=== PATIENT | female | born 2000 | race African-American/Black ===

== ENCOUNTER 2018-10-10 22:34 | Emergency (ER) | payer OTHER ==
[2018-10-10 22:39] VITALS: BP 117/88; PULSE 97; TEMP 97.9; BMI 32.8
--- NOTE | 2018-10-10 23:42 | PDOC ---
History of Present Illness - General Chief Complaint: Cold Symptoms Stated Complaint: HARD OF BREATHING Time Seen by Provider: 10/10/18 23:13 History Source: Patient Exam Limitations: No Limitations - History of Present Illness Initial Comments: 10/10/18 23:35 Patient is a 18 year old female with h/o eczema c/o SOB x 3 days. Also complains feels like acid is refluxing and today vomited some blood streaks. States she feels like she is unable to take a deep breath which is worse with laying down and it is uncomfortable from the epigastrium to the stomach. She is not on control pills, no recent travel no leg swelling. Grandmother recently treated for clots in the lung. Patient also reports that she's been bleeding changing 6 pads a day for the past 3-4 months. PMD: Dr. Nico Grijalva PMHX: As above PSOCHX: neg etoh, neg cig, neg drug ALL: NKDA GENERAL/CONSTITUTIONAL: [No fever or chills. No weakness. No weight change.] HEAD, EYES, EARS, NOSE AND THROAT: [No change in vision. No ear pain or discharge. No sore throat.] CARDIOVASCULAR: [No chest pain or shortness of breath.] RESPIRATORY: [No cough, wheezing, or hemoptysis.] GASTROINTESTINAL: [(+) nausea, vomiting, (+) diarrhea or constipation. No rectal bleeding.] GENITOURINARY: [No dysuria, frequency, or change in urination.] MUSCULOSKELETAL: [No joint or muscle swelling or pain. No neck or back pain.] SKIN AND BREASTS: [No rash or easy bruising.] NEUROLOGIC: [No headache, vertigo, loss of consciousness, or loss of sensation.] PSYCHIATRIC: [No depression or anxiety.] ENDOCRINE: [No increased thirst. No abnormal weight change.] HEMATOLOGIC/LYMPHATIC: [No anemia, easy bleeding, or history of blood clots.] ALLERGIC/IMMUNOLOGIC: [No hives or skin allergy. No latex allergy.] GENERAL: [The patient is awake, alert, and fully oriented, in no acute distress. ] HEAD: [Normal with no signs of trauma.] EYES: [Pupils equal, round and reactive to light, extraocular movements intact, sclera anicteric, conjunctiva clear.] ENT: [Ears normal, nares patent, oropharynx clear without exudates. Moist mucous membranes.] NECK: [Normal range of motion, supple without lymphadenopathy, JVD, or masses.] LUNGS: [Breath sounds equal, clear to auscultation bilaterally. No wheezes, and no crackles.] HEART: [Regular rate and rhythm, normal S1 and S2 without murmur, rub.] ABDOMEN: [Soft, tenderness epigastrum, normoactive bowel sounds. No guarding, no rebound. No masses.] EXTREMITIES: [Normal range of motion, no edema. No clubbing or cyanosis. No cords, erythema, or tenderness.] NEUROLOGICAL: [Cranial nerves II through XII grossly intact. Normal speech, normal gait.] PSYCH: [Normal mood, normal affect.] SKIN: [Warm, Dry, normal turgor, no rashes or lesions noted.] Past History - Past Medical History Allergies/Adverse Reactions: Allergies Allergy/AdvReac Type Severity Reaction Status Date / Time No Known Allergies Allergy Verified 01/06/18 23:13 Home Medications: Ambulatory Orders Doxycycline Hyclate 100 mg PO BID #14 tablet 10/11/18 COPD: No - Immunization History Immunization Up to Date: Yes - Suicide/Smoking/Psychosocial Hx Smoking History: Never smoked Have you smoked in the past 12 months: No Information on smoking cessation initiated: No Hx Alcohol Use: No Drug/Substance Use Hx: No Substance Use Type: None *Physical Exam - Vital Signs Last Vital Signs Temp Pulse Resp BP Pulse Ox 97.9 F 97 H 16 117/88 100 10/10/18 22:37 10/10/18 22:37 10/10/18 22:37 10/10/18 22:37 10/10/18 22:37 ED Treatment Course - LABORATORY CBC & Chemistry Diagram: 10/11/18 00:53 10/11/18 00:53 Medical Decision Making - Medical Decision Making 10/10/18 23:35 Patient is a 18 year old female with h/o eczema c/o SOB x 3 days. Also complains feels like acid is refluxing x 3 days and today vomited some blood streaks. States she feels like she is unable to take a deep breath which is worse with laying down and it is uncomfortable from the epigastrium to the stomach. She is not on control pills, no recent travel no leg swelling. Grandmother recently treated for clots in the lung. Patient also reports that she's been bleeding changing 6 pads a day for the past 3-4 months. Patient is PERC negative and no suspicion for PE, low suspicion for ACS. Most likely symptoms are GI related. Maalox cbc cxr Chest x-ray negative for acute infiltrates, pneumothorax 10/11/18 00:53 EKG: SR rate 89, NAD, no ST-T wave changes. No change in symptoms even with meds will add d-dimer and cmp to labs work 10/11/18 02:51 Patient Full Name: LEELA HILL Patient Accession No: [id number] Patient : 2000 Reason for Exam: sob Referring Physician: Patient Name: SERGIO SWENSON THIS IS A PRELIMINARY REPORT FROM [facility] DATE OF SERVICE: 2018-10-11 01:46:30 IMAGES: [id number] EXAM: CHEST CTA HISTORY: Shortness of breath COMPARISON: None. FINDINGS: There is no PE or dissection. Heart size is normal. The trachea and bronchi are patent. There is no pleural or pericardial effusion. Ground glass consolidation right middle lobe likely represents pneumonia. Lungs are otherwise clear. No fractures identified. The upper abdominal structures are normal. IMPRESSION: Right middle lobe pneumonia. One or more of the following dose reduction techniques were used: automated exposure control, adjustment of the mA and/or kV according to patient size, use of iterative reconstructive technique. THIS DOCUMENT HAS BEEN ELECTRONICALLY SIGNED Max Carey MD 10/11/2018 02:21 EST M.D. Please call [facility] Specialist [phone] ([phone]) with questions. INTERPRETING RADIOLOGIST: Ebenezer Carey MD Electronically Signed: Oct 11, 2018 02:22AM EDT will treat for pneumonia with doxycycline discharge f/u with pmd I discussed the physical exam findings, ancillary test results and final diagnoses with the patient. I answered all of the patient's questions. The patient was satisfied with the care received and felt comfortable with the discharge plan and treatment plan. The Patient agrees to follow up with the primary care physician within 24-72 hours. *DC/Admit/Observation/Transfer Diagnosis at time of Disposition: Pneumonia Qualifiers: Pneumonia type: due to unspecified organism Laterality: unspecified laterality Lung location: unspecified part of lung Qualified Code(s): J18.9 - Pneumonia, unspecified organism - Discharge Dispostion Disposition: HOME Condition at time of disposition: Stable - Referrals Referrals: Nico Grijalva MD [Primary Care Provider] - - Patient Instructions Printed Discharge Instructions: DI for Pneumonia -- Adult Additional Instructions: Your Discharge Instructions: You must call primary care physician within 24 hours to arrange follow-up. Return to the Emergency Department with any new, persistent or worsening symptoms, for fever, chills, SOB, dizziness or any other concerning changes that may occur. - Post Discharge Activity Forms/Work/School Notes: Back to Work
[2018-10-10] MEDS ORDERED: MAG HYDROX/AL HYDROX/SIMETH 30 ML UNIT-DOSE CUP PO ONE (23:43)
[2018-10-10] MEDS ORDERED: MAG HYDROX/AL HYDROX/SIMETH 30 ML UNIT-DOSE CUP ONE (23:46)
[2018-10-11 01:11] LABS: BASO % 0.5 % (0-2.0); EOS % 0.8 % (0-4.5); HEMOGLOBIN 10.5 GM/dL (10.7-15.3); LYMPH % 45.7 % (8-40); MCH 25.5 pg (25.7-33.7); MCHC 31.9 g/dl (32.0-36.0); MEAN CELL VOLUME 79.8 fl (80-96); MEAN PLT VOLUME 7.4 fl (7.5-11.1); MONO % 6.2 % (3.8-10.2); NEUT % 46.8 % (42.8-82.8); PLATELET COUNT 330 K/MM3 (134-434); RBC 4.14 M/mm3 (3.60-5.2); RDW 15.3 % (11.6-15.6); WHITE BLOOD COUNT 8.5 K/mm3 (4.0-10.0)
[2018-10-11 01:29] LABS: ALBUMIN 3.6 g/dl (3.4-5.0); ALK PHOS 78 U/L (45-117); ANION GAP 5 MMOL/L (8-16); BILIRUBIN,TOTAL 0.2 mg/dL (0.2-1); BLOOD UREA NITROGEN 11 mg/dL (7-18); CALCIUM 8.5 mg/dL (8.5-10.1); CHLORIDE 104 mmol/L (98-107); CO2 28 mmol/L (21-32); CREATININE 0.7 mg/dL (0.55-1.3); GLUCOSE,RANDOM 87 mg/dL (74-106); POTASSIUM 3.8 mmol/L (3.5-5.1); SGOT/AST 14 U/L (15-37); SGPT/ALT 20 U/L (13-61); SODIUM 137 mmol/L (136-145); TOT PROT 7.6 g/dl (6.4-8.2)
[2018-10-11] MEDS ORDERED: DOXYCYCLINE HYCLATE 100 MG CAPSULE PO ONE ×2 (02:56→03:05)
--- NOTE | 2018-10-11 10:27 | EKG ---
Test Reason : Blood Pressure : / mmHG Vent. Rate : 089 BPM Atrial Rate : 089 BPM P-R Int : 136 ms QRS Dur : 076 ms QT Int : 348 ms P-R-T Axes : 060 066 042 degrees QTc Int : 423 ms NORMAL SINUS RHYTHM NORMAL ECG NO PREVIOUS ECGS AVAILABLE Confirmed by LUPIS GOTTLIEB MD ([id number]) on 10/11/2018 10:26:44 AM Referred By: Confirmed By:LUPIS GOTTLIEB MD
== END 2018-10-11 03:30 | disposition home or self-care (01) ==
LOC: JER 22:34
DX: J18.9 Pneumonia, unspecified organism (principal)
CPT/HCPCS: 36415; 71046-TC-FY; 71275-TC; 80053; 84702; 85025; 85379; 93005; 93010; 99282-25